=== PATIENT | female | born 2000 | race Caucasian/White ===

== ENCOUNTER 2019-04-25 11:00 | Emergency (ER) | payer SELFPAY ==
[2019-04-25] MEDS ORDERED: ALPRAZolam 0.25 MG TAB ONE (11:57)
[2019-04-25] MEDS ORDERED: Acetaminophen 500 MG TAB ONE (11:59)
[2019-04-25] MEDS ORDERED: Ketorolac Tromethamine 30 MG/ML VIAL ONE (12:00)
== END 2019-04-25 12:52 | disposition home or self-care (01) ==
LOC: ERS 11:00
DX: S13.9XXA Sprain of joints and ligaments of unspecified parts of neck, initial encounter (principal); F43.9 Reaction to severe stress, unspecified; V89.2XXA Person injured in unspecified motor-vehicle accident, traffic, initial encounter
CPT/HCPCS: 96374; J1885